=== PATIENT | male | born 1980 | race Caucasian/White ===

== ENCOUNTER → 2020-03-15 | Outpatient (CLI) | payer BC ==
--- NOTE | 2020-03-15 13:18 | Diagnostic Imaging Report ---
Indication: Abnormal thyroid function tests Technique: Grayscale and duplex images of the thyroid Comparison: none Findings: Right thyroid lobe measures 5.4 cm length x 1.2 cm AP. Left thyroid lobe measures 5.3 cm length x 1.4 cm AP. Both thyroid lobes demonstrate normal echogenicity.. No focal abnormality. Impression: negative
== END | disposition home or self-care (01) ==
LOC: ULS 09:26
DX: R94.6 Abnormal results of thyroid function studies (principal)
CPT/HCPCS: 76536